=== PATIENT | male | born 1970 | race American Indian/Alaskan Native ===

== ENCOUNTER 2020-02-10 20:03 | Emergency (ER) | payer SELFPAY ==
[2020-02-10] MEDS ORDERED: TETANUS,DIPH,PERTUSS(ACELL) VACCINE 0.5 ML SYRINGE IM ONE (20:53)
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
[2020-02-10 21:28] VITALS: BP 143/92
== END 2020-02-10 21:27 | disposition home or self-care (01) ==
LOC: ED 20:03
DX: S01.511A Laceration without foreign body of lip, initial encounter (principal); F41.9 Anxiety disorder, unspecified; F32.89 Other specified depressive episodes; F17.200 Nicotine dependence, unspecified, uncomplicated; F12.10 Cannabis abuse, uncomplicated; F15.10 Other stimulant abuse, uncomplicated; F14.10 Cocaine abuse, uncomplicated; X58.XXXA Exposure to other specified factors, initial encounter; Y93.89 Activity, other specified; Y92.89 Other specified places as the place of occurrence of the external cause; Y99.8 Other external cause status
CPT/HCPCS: 90471; 90715